=== PATIENT | female | born 1935 | race Caucasian/White ===

== ENCOUNTER 2019-03-03 12:03 | Inpatient (IN) ==
--- NOTE | 2019-03-03 12:39 | Diag Imaging Result Doc PS360 ---
EXAM: CHEST-1 VIEW HISTORY: ams TECHNIQUE: Chest single view COMPARISON: 03/25/2018 FINDINGS: Poor inspiratory effort. There is pulmonary edema. Heart is mildly prominent and there may be small effusions. No consolidation. Severe right shoulder arthritis. IMPRESSION: Pulmonary edema Electronically signed by Malcom Adam 03/03/2019 12:37 PM
--- NOTE | 2019-03-03 12:40 | EKG Report ---
Test Performed on : 03/03/2019 12:20:17 PM Test Reason : ams Blood Pressure : / mmHG Vent. Rate : 096 BPM Atrial Rate : 096 BPM P-R Int : 242 ms QRS Dur : 076 ms QT Int : 336 ms P-R-T Axes : 057 010 059 degrees QTc Int : 424 ms Sinus rhythm. with 1st degree AV block. with occasional premature ventricular complexes. Septal infarct (cited on or before 20-MAR-2018) Abnormal ECG When compared with ECG of 20-MAR-2018 08:10, premature ventricular complexes. are now present VT interval has increased Criteria for Inferior infarct are no longer present Unconfirmed Result
[2019-03-03 13:10] LABS: ALLEN TEST YES; BE 0.8 mmoll (-3.0-3.0); BLOOD TYPE ARTERIAL; HCO3-(ACT) 25.5 mmoll (20.0-26.0); METHB 1.5 % (0.0-1.5); MODALITY CANNULA; O2(CT) 14.8 mL/dL (15.0-23.0); O2HB 93.7 % (95.0-99.0); PCO2(98.6) 43 mmHg (35-45); PO2(98.6) 72 mmHg (60-100); SAMPLE BLOOD; SAO2 96.6 % (95.0-100.0); THB 11.2 g/dL (11.5-17.4); pH(98.6) 7.39 (7.35-7.45)
[2019-03-03 13:14] LABS: URINE SOURCE CATH
[2019-03-03 13:17] LABS: BASO# 0.04 X1000 (0.0-0.2); BASO% 0.4 % (0.0-0.8); EOS# 0.21 X1000 (0.0-0.7); EOS% 2.2 % (0.0-10.0); HEMATOCRIT 37.6 % (37.0-47.0); HEMOGLOBIN 11.9 g/dL (12.0-16.0); IMM GRAN# 0.03 X1000 (0.0-0.04); IMM GRAN% 0.3 % (0.0-0.5); LYMPH# 3.54 X1000 (1.2-3.4); MCH 29.1 PG (27-31); MCHC 31.6 g/dL (33-37); MCV 91.9 FL (81-99); MONO# 0.74 X1000 (0.11-0.59); MONO% 7.7 % (1.7-9.3); MPV 9.7 FL (7.4-10.4); NEUT# 5.02 X1000 (1.4-6.5); NEUT% 52.4 % (42.2-75.2); PLT 229 X1000 (130-400); RBC 4.09 XMIL (4.2-5.4); RDW 13.3 % (11.5-14.5); WBC 9.58 X1000 (4.8-10.8)
[2019-03-03 13:19] LABS: BILIRUBIN URINE NEGATIVE (NEGATIVE); BLOOD URINE NEGATIVE (NEGATIVE); COLOR YELLOW; GLUCOSE URINE NEGATIVE (NEGATIVE); KETONE URINE NEGATIVE (NEGATIVE); LEUKOCYTES URINE LARGE (NEGATIVE); NITRITE URINE POSITIVE (NEGATIVE); PH URINE 5.5; PROTEIN URINE NEGATIVE (NEGATIVE); SP GRAVITY URINE 1.014; TURBIDITY URINE HAZY (CLEAR); UROBILINOGEN URINE NORMAL (NORMAL)
[2019-03-03 13:21] LABS: UR EPITHELIAL CELLS <10 /HPF (<10); URINE BACTERIA 4+ /HPF; URINE RBC <10 /HPF (<10); URINE WBC TNTC /HPF (<10)
[2019-03-03 13:26] LABS: INR 0.84; PROTIME 12.2 Seconds (11.0-16.0)
[2019-03-03 13:27] LABS: PTT 25.6 Seconds (22.3-41.8)
[2019-03-03 13:44] LABS: ALBUMIN 3.9 g/dL (3.5-5.0); CALCIUM 9.6 mg/dL (8.8-10.2); POTASSIUM 4.7 mmol/L (3.5-5.1); TOTAL BILIRUBIN 0.19 mg/dL (0.20-1.00); TOTAL PROTEIN 7.8 g/dL (6.3-8.3)
--- NOTE | 2019-03-03 13:48 | Diag Imaging Result Doc PS360 ---
EXAM: CT HEAD W/O CONTRAST HISTORY: ER 3 AMS TECHNIQUE: CT head without contrast COMPARISON: 02/25/2015 FINDINGS: No parenchymal hemorrhage. No epidural or subdural hematoma. No subarachnoid hemorrhage. There are chronic microvascular ischemic changes. No mass identified on this noncontrasted exam. No hydrocephalus. Near complete bilateral maxillary opacification with prominent mucus in the ethmoid sinuses and opacification of the left frontal sinus. IMPRESSION: 1.No hemorrhage 2.Chronic microvascular ischemic changes 3.Prominent sinusitis This exam was performed using automated exposure control, adjustment of mA or kV according to patient size, and/or use of iterative reconstruction technique. Electronically signed by Malcom Adam 03/03/2019 1:46 PM
[2019-03-03] MEDS ORDERED: ROCEPHIN 1 GM in NS 50 ML IV ONE (15:22)
--- NOTE | 2019-03-03 15:25 | PROVIDER DOCUMENTATION ---
This chart was entered by Winnie Navarrete Scribe, acting as scribe for Ramón Irving MD. HPI-Neurological Disorder - General Stated Complaint: AMS Time Seen by Provider: 03/03/19 12:12 Source: patient, EMS Allergies/Adverse Reactions: Patient Allergies Allergy/AdvReac Type Severity Reaction Status Date / Time No Known Allergies Allergy Verified 10/25/15 08:52 Home Medications: Home Medication List Medication Instructions Recorded Confirmed Last Taken Type SIMVAstatin [Zocor] 20 mg PO QHS 08/12/12 03/19/18 10/25/15 21:00 History Ropinirole HCl [Requip] 2 mg PO BID 09/30/14 03/19/18 10/25/15 21:00 History Furosemide [Lasix] 20 mg PO DAILY 02/25/15 03/19/18 10/25/15 09:00 History Ferrous Sulfate [Ferosul] 325 mg PO DAILY 10/25/15 03/19/18 10/25/15 09:00 Hi story Metformin [Glucophage] 500 mg PO BID 10/25/15 03/19/18 10/25/15 17:00 History Albuterol [Albuterol Neb] 2.5 mg INH 4XDAY PRN PRN 03/19/18 03/19/18 Unknown History Calcium Carbonate/Vitamin D3 1 each PO DAILY 03/19/18 03/19/18 Unknown History [Calcium 600 + Vit D Tablet] Fluticasone/Salmeterol [Advair 1 puff IH BID 03/19/18 03/19/18 Unknown History 250-50 Diskus] Ipratropium [place] Neb [Atrovent 0.5 mg INH 4XDAY PRN PRN 03/19/18 03/19/18 Unknown History Neb] Ipratropium/Albuterol Sulfate 2 puff IH BID 03/19/18 03/19/18 Unknown History [Combivent Respimat 20-100 Mcg] Donepezil [Aricept] 10 mg PO HS #30 tab 03/25/18 Unknown Rx Duloxetine [Cymbalta] 20 mg PO DAILY #30 cap 03/25/18 Unknown Rx Gabapentin [Neurontin] 100 mg PO RTQ8H #90 cap 03/25/18 Unknown Rx Lorazepam [Ativan] 0.5 mg PO DAILY #15 tab 03/25/18 Unknown Rx Lorazepam [Ativan] 1 mg PO HS #15 tab 03/25/18 Unknown Rx Magnesium Oxide [Mag-Ox] 400 mg PO BID #60 tab 03/25/18 Unknown Rx Mirtazapine [Remeron] 15 mg PO HS #30 tab 03/25/18 Unknown Rx Nitrofurantoin [place]/Macrocryst 100 mg PO BID #5 cap 03/25/18 Unknown Rx [Macrobid] Oxycodone E.r. [Oxycontin] 10 mg PO Q12HR #30 tab 03/25/18 Unknown Rx Pregabalin [Lyrica] 25 mg PO HS #15 cap 03/25/18 Unknown Rx - History of Present Illness-Neuro Nature of Presenting Problem: Patient is a 83 year old female who presents to the ED via EMS with altered mental status. EMS states [facility] staff stated patient has been drowsy since 1000 this morning. Patient denies pain. EMS states patient has a history of dementia and takes [place] and Ativan. Severity: reports: mild Onset/Duration: reports: this morning (1000) Timing: reports: improving Context: reports: other (AMS) Character of Altered Mental Status: reports: other (drowsy) Any recent trauma/injury?: reports: none Gait Baseline: walks without assistance Associated Symptoms: reports: denies symptoms Similar Symptoms Previously?: No Recently seen or treated by another doctor?: No Review of Systems - Adult - REVIEW OF SYSTEMS - ADULT Constitutional: reports: no symptoms reported. denies: chills, fever, fatique Eyes: reports: no symptoms reported Ears, Nose, Mouth & Throat: reports: no symptoms reported Cardiovascular: reports: no symptoms reported. denies: chest pain, irregular heart rate, palpitations Respiratory: reports: no symptoms reported Gastrointestinal: reports: no symptoms reported Genitourinary: reports: no symptoms reported Musculoskeletal: reports: no symptoms reported. denies: back pain, muscle aches, neck pain Integumentary: reports: no symptoms reported Neurological: reports: no symptoms reported Psychiatric: reports: no symptoms reported Endocrine: reports: no symptoms reported Hematologic/Lymphatic: reports: no symptoms reported Allergic/Immunologic: reports: no symptoms reported All Other Systems: Reviewed and Negative Past History - Adult - PAST MEDICAL HISTORY-ADULT Review of Records: reports: Old Records Reviewed, Nursing Assessment Review, Medications Reviewed, Social history reviewed & non-contributory. Major Childhood Illnesses: reports: denies history Cardiovascular: reports: hyperlipidemia Respiratory: reports: COPD Gastrointestinal: reports: GERD Obstetrical/Gynecological: reports: denies history Genitourinary: reports: denies history Musculoskeletal: reports: chronic pain (back) Neurological: reports: dementia Psychiatric: reports: anxiety, depression Endocrine/Immune: reports: Diabetes Other Conditions: reports: denies history - PRIOR SURGERIES/PROCEDURES Surgical/Procedure History: reports: hysterectomy - IMMUNIZATION STATUS Childhood Immunizations: See Nurse Assessment Flu Vaccine: See Nurse Assessment - FAMILY HISTORY Family History: reviewed, not pertinent - SOCIAL HISTORY Smoking: denies Substance Use: denies Living Situation: care facility (SNF) Physical Exam- Neurological - Physical Exam-Neuro Initial Vital Signs Reviewed: Yes General Appearance: alert, no apparent distress. negative: lethargic Eye Exam: bilateral eye: normal inspection, PERRL, EOMI HENMT: normocephalic/atraumatic, moist mucous membranes. negative: angioedema Head Injury: no evidence of injury. negative: active bleeding, lacerations, tenderness Respiratory: chest non-tender, rhonchi (bilateral. right worse than left.). negative: respiratory distress, crackles Cardiovascular: normal peripheral pulses, regular rate, rhythm. negative: tachycardia Abdominal Exam: normal bowel sounds, non tender, soft. negative: rigid Extremity: non-tender, normal inspection. negative: deformity, erythema marble supervisor Exam: normal hearing, normal speech, PERRL. negative: facial droop Motor/Sensory: no motor deficit, no sensory deficit. negative: sensory deficit Neurologic: grossly normal, no motor/sensory deficits. negative: aphasia, facial droop Integumentary: normal color, normal turgor, warm/dry. negative: cyanosis, ecchymosis, jaundice, rash Psych/Mental Status: normal mood/affect. negative: anxious, paranoid - Glascow Coma Scale Best Eye Response: (4) open spontaneously Best Verbal Response: (5) oriented Best Motor Response: (6) obeys commands Total Glascow Score: 15 Progress - PLAN OF CARE/RESULTS Progress/Plan/Lab Results: Vital Signs - 8 hr 03/03/19 12:18 03/03/19 12:19 03/03/19 12:20 Temperature 97.7 F Pulse Rate 98 H Respiratory Rate 18 Blood Pressure 159/81 159/81 O2 Sat by Pulse Oximetry 99 98 99 03/03/19 12:30 03/03/19 12:40 Temperature Pulse Rate Respiratory Rate Blood Pressure O2 Sat by Pulse Oximetry 99 99 Laboratory Results - last 24 hr 03/03/19 03/03/19 03/03/19 12:23 12:49 12:49 WBC 9.58 RBC 4.09 L Hgb 11.9 L Hct 37.6 MCV 91.9 MCH 29.1 MCHC 31.6 L RDW Std Deviation 13.3 Plt Count 229 MPV 9.7 Immature Gran % (Auto) 0.3 Neut % (Auto) 52.4 Lymph % (Auto) 37.0 [place] % (Auto) 7.7 Eos % (Auto) 2.2 Baso % (Auto) 0.4 Immature Gran # (Auto) 0.03 Neut # (Auto) 5.02 Lymph # (Auto) 3.54 H [place] # (Auto) 0.74 H Eos # (Auto) 0.21 Baso # (Auto) 0.04 PT INR PTT (Actin FS) Specimen Type Sample Site pH pCO2 pO2 HCO3 Base Excess Oxyhemoglobin ABG O2 Sat (Calculated) ABG O2 Saturation ABG Carboxyhemoglobin ABG Methemoglobin Bill Test A-a O2 Difference Total Hemoglobin Lactate Blood Gas Modality FiO2 % Sodium 132 L Potassium 4.7 Chloride 95 L Carbon Dioxide 26 Anion Gap 11 BUN 14 Creatinine 1.0 H Estimated GFR/1.73 m2 53 BUN/Creatinine Ratio 14 Glucose 105 H POC Glucose 108 H Calculated Osmolality 265 Calcium 9.6 Total Bilirubin 0.19 L AST 19 ALT 12 Alkaline Phosphatase 146 H Total Protein 7.8 Albumin 3.9 Globulin 3.9 Albumin/Globulin Ratio 1.0 Urine Source Urine Color Urine Turbidity Urine pH Ur Specific [place] Urine Protein Ur Glucose (Stick) Ur Ketones (Stick) Urine Blood Urine Nitrite Urine Bilirubin Urobilinogen Dipstick Urine Leukocytes Urine WBC (Auto) Urine RBC (Auto) U Epithel Cells (Auto) Urine Bacteria (Auto) 03/03/19 03/03/19 03/03/19 12:49 13:03 13:05 WBC RBC Hgb Hct MCV MCH MCHC RDW Std Deviation Plt Count MPV Immature Gran % (Auto) Neut % (Auto) Lymph % (Auto) [place] % (Auto) Eos % (Auto) Baso % (Auto) Immature Gran # (Auto) Neut # (Auto) Lymph # (Auto) [place] # (Auto) Eos # (Auto) Baso # (Auto) PT 12.2 INR 0.84 PTT (Actin FS) 25.6 Specimen Type ARTERIAL Sample Site L RADIAL pH 7.39 pCO2 43 pO2 72 HCO3 25.5 Base Excess 0.8 Oxyhemoglobin 93.7 L ABG O2 Sat (Calculated) 14.8 L ABG O2 Saturation 96.6 ABG Carboxyhemoglobin 1.50 ABG Methemoglobin 1.5 Bill Test YES A-a O2 Difference 102.0 Total Hemoglobin 11.2 L Lactate 1.60 Blood Gas Modality CANNULA FiO2 % 32.0 Sodium Potassium Chloride Carbon Dioxide Anion Gap BUN Creatinine Estimated GFR/1.73 m2 BUN/Creatinine Ratio Glucose POC Glucose Calculated Osmolality Calcium Total Bilirubin AST ALT Alkaline Phosphatase Total Protein Albumin Globulin Albumin/Globulin Ratio Urine Source CATH Urine Color YELLOW Urine Turbidity HAZY Urine pH 5.5 Ur Specific [place] 1.014 Urine Protein NEGATIVE Ur Glucose (Stick) NEGATIVE Ur Ketones (Stick) NEGATIVE Urine Blood NEGATIVE Urine Nitrite POSITIVE A Urine Bilirubin NEGATIVE Urobilinogen Dipstick NORMAL Urine Leukocytes LARGE A Urine WBC (Auto) TNTC A Urine RBC (Auto) <10 U Epithel Cells (Auto) <10 Urine Bacteria (Auto) 4+ Orders Category Date Time Status CHEST-1 VIEW [RAD] Stat Exams 03/03/19 12:[address] HEAD W/O CONTRAST [CT] Stat Exams 03/03/19 12:20 Completed ABG [RESP] Routine Lab 03/03/19 13:05 Completed CBC WITH DIFF [HEME] Stat Lab 03/03/19 12:49 Completed COMPREHENSIVE METABOLIC PANEL [CHEM] Stat Lab 03/03/19 12:49 Completed PROTIME WITH INR [COAG] Stat Lab 03/03/19 12:49 Completed PTT [COAG] Stat Lab 03/03/19 12:49 Completed URINALYSIS W/POSS RFLX CULT [URINALYSIS] Stat Lab 03/03/19 13:03 Completed URINE CULTURE [RM] Routine Lab 03/03/19 13:38 Received Rocephin 1 gm/Ns IV Now Med 03/03/19 15:22 Ordered CefTRIAXONE [Rocephin] 1 gm 0.9% Sodium Chloride Inj [Ns] 50 ml IV NOW EKG [EKG] Stat Ther 03/03/19 12:22 Draft Result Diagrams: 03/03/19 12:49 03/03/19 12:49 - EKG 1 Time of EKG reading by physician:: 12:20 EKG Read and Signed by:: Ramón Irving EKG Interpretation (*Must complete 3 of following elements*): Abnormal (rhythm - sinus rhythm with 1st degree AV block with occasional premature ventricular complexes) Rate: 96 [place]: normal Comments: septal infarct, age undetermined 2 Time of EKG reading by physician:: 14:52 EKG Read and Signed by:: Ramón Irving EKG Interpretation (*Must complete 3 of following elements*): Abnormal Rate: 102 Rhythm: sinus tachycardia with 1st degree AV block [place]: normal Comments: otherwise normal ECG - XRAY 1 XRAY Study: Chest Impression: See EMR Report ( EXAM: CHEST-1 VIEW HISTORY: ams TECHNIQUE: Chest single view COMPARISON: 03/25/2018 FINDINGS: Poor inspiratory effort. There is pulmonary edema. Heart is mildly prominent and there may be small effusions. No consolidation. Severe right shoulder arthritis. IMPRESSION: Pulmonary edema Electronically signed by Malcom Adam 03/03/2019 12:37 PM 03/03/19 1237 Interpreting Physician: Malcom Adam MD Dictated Date/Time: 03/03/19 1237 cc: Ramón Irving MD; Chris Rodriguez MD) - CT/MRI 1 CT Study: Head Impression: See EMR Report ( EXAM: CT HEAD W/O CONTRAST HISTORY: ER 3 AMS TECHNIQUE: CT head without contrast COMPARISON: 02/25/2015 FINDINGS: No parenchymal hemorrhage. No epidural or subdural hematoma. No subarachnoid hemorrhage. There are chronic microvascular ischemic changes. No mass identified on this noncontrasted exam. No hydrocephalus. Near complete bilateral maxillary opacification with prominent mucus in the ethmoid sinuses and opacification of the left frontal sinus. IMPRESSION: 1.No hemorrhage 2.Chronic microvascular ischemic changes 3.Prominent sinusitis This exam was performed using automated exposure control, adjustment of mA or kV according to patient size, and/or use of iterative reconstruction technique. Electronically signed by Malcom Adam 03/03/2019 1:46 PM 03/03/19 1346 Interpreting Physician: Malcom Adam MD Dictated Date/Time: 03/03/19 1345 cc: Ramón Irving MD; Chris Rodriguez MD) - CONSULTS/PCP/HOSPITALIST Notification #1 *Consult/PCP/Hospitalist*: Dr. Rodriguez Time Discussed: 15:21 Reason/Comments: Dr. Irving consulted with Dr. Rodriguez about patient Consult Disposition: Admit Departure - Departure Date of Disposition Decision: 03/03/19 Time of Disposition Decision: 15:22 DIAGNOSIS: UTI (lower urinary tract infection), Altered mental status Disposition: ADMITTED INPATIENT 09 Certified Medical Emergency: Emergent Condition: Fair Referrals and Follow-Ups: Chris Rodriguez MD [Primary Care Provider] - - Critical Care Note This patient required my direct & personal management of CC.: No Attestation - Physician/ ANG Attestation Patient care was provided by Advanced Practice Provider:: No The physician spent face to face time with patient:: Yes Advanced Practice Provider documentation review:: Supervising physician onsite and consulted in the evaluation and care of this patient. The physician did have a face to face encounter with the patient. This chart was documented by the indicated scribe, (Winnie Navarrete Scribe) and accurately reflects the services I performed and decisions made by me, Ramón Irving MD, as attested by the provider's signature.
[2019-03-03] MEDS: LYRICA PO SCH (21:42)
[2019-03-03] MEDS: LEVAQUIN 750 MG/D5W 750 MG/150 ML IVPB IV SCH (21:42)
[2019-03-03] MEDS: MAG-OX PO SCH (21:42)
[2019-03-03] MEDS: ATIVAN PO SCH (21:42)
[2019-03-03] MEDS: OXYCONTIN PO SCH (21:42)
[2019-03-03] MEDS: ARICEPT PO SCH (21:42)
[2019-03-03] MEDS: REMERON PO SCH (21:42)
[2019-03-03] MEDS: GLUCOPHAGE PO SCH (21:42)
[2019-03-03] MEDS: NEURONTIN PO SCH (23:12)
[2019-03-03] MEDS: REQUIP PO SCH (23:12)
--- NOTE | 2019-03-04 03:59 | HISTORY AND PHYSICAL ---
HISTORY OF PRESENT ILLNESS: Ms. Friend is a known case of COPD and early dementia, a resident of [facility]. This morning she was found almost unresponsive. She was slightly hypotensive and sweaty, and at that time she did not know her whereabouts, did not answer the nursing staff properly. The nurses were worried about her health and so she was transferred to the emergency room, from where she is admitted on account of acute mental status change and urinary tract infection. 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 She has been on pain medications on a regular basis. PAST SURGICAL HISTORY: Hysterectomy. MEDICATIONS: She does take albuterol and Atrovent inhaler. She uses pain medication as well as Ativan on a regular basis. REVIEW OF SYSTEMS: Noncontributory. PHYSICAL EXAMINATION: VITAL SIGNS: Temperature normal, pulse 80 per minute, respiratory rate 18 per minute, blood pressure 110/78. GENERAL: There is no evidence of lymphadenopathy, thyroid enlargement, pedal edema, calf tenderness, anemia, cyanosis or clubbing. HEENT: Head normocephalic. Pupils: PERRLA. Fundus examination not done. ENT examination unremarkable. NECK: Supple. JVP normal. EXTREMITIES: Pedal pulses well felt. BREASTS: Exam normal. CHEST: Normal inspection. LUNGS: Clear on auscultation. HEART: PMI in the normal position. Heart sounds normal. No murmur, gallop or rub noted. ABDOMEN: Nondistended. There is some tenderness in the suprapubic area. No guarding, rigidity, free fluid, masses or organomegaly. Bowel sounds normal. RECTAL: Exam deferred. 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 Cranial nerves normal. Motor and sensory system examination unremarkable. The patient appears to be somewhat confused right now; however, mental status has improved significantly. Deep tendon reflexes normal. Plantars downgoing. No cerebellar signs or signs of meningeal irritation on locomotor exam. MUSCULOSKELETAL: Skull and spine examination normal for age. SKIN: Exam unremarkable. CLINICAL IMPRESSION: 1. Acute mental status change. 2. Urinary tract infection. PLAN: The cultures have been done, and we will start her on IV Levaquin. We will watch her closely. cc: Chris Rodriguez MD
--- NOTE | 2019-03-04 08:23 | EKG Report ---
Test Performed on : 03/03/2019 2:52:21 PM Test Reason : ED. NO EKG ORDER FOR MUSE Blood Pressure : / mmHG Vent. Rate : 102 BPM Atrial Rate : 102 BPM P-R Int : 248 ms QRS Dur : 070 ms QT Int : 318 ms P-R-T Axes : 050 012 062 degrees QTc Int : 414 ms Sinus tachycardia. with 1st degree AV block. Otherwise normal ECG When compared with ECG of 03-MAR-2019 12:20, (Unconfirmed) premature ventricular complexes. are no longer present Unconfirmed Result
--- NOTE | 2019-03-04 08:24 | EKG Report ---
Test Performed on : 03/03/2019 4:11:28 PM Test Reason : ED. NO EKG ORDER FOR MUSE Blood Pressure : / mmHG Vent. Rate : 078 BPM Atrial Rate : 078 BPM P-R Int : 148 ms QRS Dur : 072 ms QT Int : 388 ms P-R-T Axes : 007 -28 -04 degrees QTc Int : 442 ms Normal sinus rhythm. Minimal voltage criteria for LVH, may be normal variant Borderline ECG When compared with ECG of 03-MAR-2019 14:52, (Unconfirmed) ID interval has decreased ST now depressed in Inferior leads Non-specific change in ST segment in Lateral leads Unconfirmed Result
[2019-03-04] MEDS: LASIX PO SCH (09:06)
[2019-03-04] MEDS: CALTRATE 600 + D PO SCH (09:06)
[2019-03-04] MEDS: MAG-OX PO SCH ×2 (09:07→21:21)
[2019-03-04] MEDS: OXYCONTIN PO SCH ×2 (09:07→21:21)
[2019-03-04] MEDS: FERROUS SULFATE PO SCH (09:07)
[2019-03-04] MEDS: ATIVAN PO SCH ×2 (09:07→21:21)
[2019-03-04] MEDS: CYMBALTA PO SCH (09:07)
[2019-03-04] MEDS: GLUCOPHAGE PO SCH ×2 (09:07→21:22)
[2019-03-04] MEDS: REQUIP PO SCH ×2 (09:07→21:21)
[2019-03-04] MEDS: NEURONTIN PO SCH ×3 (09:07→23:53)
--- NOTE | 2019-03-04 11:59 | PROGRESS NOTE ---
DATE: 03/04/2019 SUBJECTIVE: Ms. Friend is doing fairly well. She was hospitalized for mental status change. CT scan is negative. She had some urinary tract infection. We have started IV Levaquin on her, which she has tolerated quite well. Her vital signs are stable, except for low-grade fever, which is 99.1. Overall condition is unchanged. We will continue with the current management. -1 cc: Chris Rodriguez MD
[2019-03-04] MEDS: ALBUTEROL NEB INH PRN (20:32)
[2019-03-04] MEDS: ATROVENT NEB INH PRN (20:32)
[2019-03-04] MEDS: ARICEPT PO SCH (21:21)
[2019-03-04] MEDS: REMERON PO SCH (21:22)
[2019-03-04] MEDS: LYRICA PO SCH (21:24)
[2019-03-04] MEDS: LEVAQUIN 750 MG/D5W 750 MG/150 ML IVPB IV SCH (21:26)
[2019-03-05] MEDS: ATROVENT NEB INH PRN (03:40)
[2019-03-05] MEDS: ALBUTEROL NEB INH PRN ×2 (03:40→08:33)
[2019-03-05] MEDS: NEURONTIN PO SCH ×2 (06:09→15:57)
[2019-03-05] MEDS: OXYCONTIN PO SCH (09:17)
[2019-03-05] MEDS: MAG-OX PO SCH (09:18)
[2019-03-05] MEDS: FERROUS SULFATE PO SCH (09:18)
[2019-03-05] MEDS: CALTRATE 600 + D PO SCH (09:18)
[2019-03-05] MEDS: CYMBALTA PO SCH (09:18)
[2019-03-05] MEDS: ATIVAN PO SCH (09:18)
[2019-03-05] MEDS: REQUIP PO SCH (09:18)
[2019-03-05] MEDS: LASIX PO SCH (09:18)
[2019-03-05] MEDS: GLUCOPHAGE PO SCH (09:18)
--- NOTE | 2019-03-05 12:09 | DISCHARGE SUMMARY ---
ADMISSION DATE: 03/03/2019 DISCHARGE DATE: 03/04/2019 HISTORY OF PRESENT ILLNESS: Ms. Friend is an 83-year-old white female who lives in [facility]. She was admitted with acute mental status change. She also had a urinary tract infection. DIAGNOSTIC DATA: Chest x-ray revealed pulmonary edema. CT scan of the brain was performed, and it did not show any evidence of hemorrhage. There were other chronic microvascular ischemic changes noted. Sinusitis was also noted. EKG had revealed sinus tachycardia, first-degree AV block, otherwise normal EKG. COURSE IN THE HOSPITAL: She was given IV Rocephin in the ER. We changed it to Levaquin, however, it was resistant to Levaquin, and we changed back to Keflex. We will discharge her today with Keflex 500 mg 3 times a day for 7 days. She is going to continue all her same medications and going to be discharged to [facility] today. FINAL DIAGNOSES: 1. Acute encephalopathy secondary to urinary tract infection. 2. Mild pulmonary edema. 3. Dementia. 4. Diabetes. 5. Chronic obstructive pulmonary disease. 6. Degenerative arthritis in the lumbar spine and both knees. cc: Chris Rodriguez MD
--- NOTE | 2019-03-05 12:11 | PROGRESS NOTE ---
DATE: 03/05/2019 SUBJECTIVE: Ms. Friend is doing better. She had Escherichia coli isolated from the urine culture. She is on IV Levaquin. She is feeling better. Vital signs are stable. She wants to be discharged today. We will discharge her. It is resistant to Levaquin, however, it is sensitive to cefazolin. We will put her on Keflex for 7 days and discharge her. cc: Chris Rodriguez MD
[2019-03-05 12:24] VITALS: BP 119/71
[2019-03-05] MEDS ORDERED: KEFLEX PO SCH (21:00)
--- NOTE | 2019-03-11 04:25 | DISCHARGE SUMMARY ---
ADMISSION DATE: 03/03/2019 DISCHARGE DATE: 03/05/2019 ADDENDUM: Ms Friend was admitted with mental confusion. She also had severe urinary tract infection, which was treated accordingly with antibiotics. She had metabolic encephalopathy due to urinary tract infection. cc: Chris Rodriguez MD
== END 2019-03-05 16:29 | DRG 689 ==
LOC: SUPCPDRO → ED 12:03 → 3N 18:02
PROVIDERS: ADMIT Internal Medicine; ATTEND Internal Medicine
CPT/HCPCS: 70450; 71010; 71045; 80053; 81001; 82805; 82948; 85025; 85610; 85730; 87040; 87077; 87088; 87186; 93005; 94640; 94761; 99285; A9270; J0696; J1956; XXXXX

== ENCOUNTER 2019-09-30 00:25 | Inpatient (IN) ==
--- NOTE | 2019-09-30 00:41 | PROVIDER DOCUMENTATION ---
HPI-General Adult - General Stated Complaint: sob, cough Time Seen by Provider: 09/30/19 00:29 Source: patient, EMS Allergies/Adverse Reactions: Patient Allergies Allergy/AdvReac Type Severity Reaction Status Date / Time No Known Allergies Allergy Verified 10/25/15 08:52 Home Medications: Home Medication List Medication Instructions Recorded Confirmed Last Taken Type SIMVAstatin [Zocor] 20 mg PO QHS 08/12/12 03/19/18 10/25/15 21:00 History Ropinirole HCl [Requip] 2 mg PO BID 09/30/14 03/19/18 10/25/15 21:00 History Furosemide [Lasix] 20 mg PO DAILY 02/25/15 03/19/18 10/25/15 09:00 History Ferrous Sulfate [Ferosul] 325 mg PO DAILY 10/25/15 03/19/18 10/25/15 09:00 History Metformin [Glucophage] 500 mg PO BID 10/25/15 03/19/18 10/25/15 17:00 History Albuterol [Albuterol Neb] 2.5 mg INH 4XDAY PRN PRN 03/19/18 03/19/18 Unknown History Calcium Carbonate/Vitamin D3 1 each PO DAILY 03/19/18 03/19/18 Unknown History [Calcium 600 + Vit D Tablet] Fluticasone/Salmeterol [Advair 1 puff IH BID 03/19/18 03/19/18 Unknown History 250-50 Diskus] Ipratropium [place] Neb [Atrovent 0.5 mg INH 4XDAY PRN PRN 03/19/18 03/19/18 Unknown History Neb] Ipratropium/Albuterol Sulfate 2 puff IH BID 03/19/18 03/19/18 Unknown History [Combivent Respimat 20-100 Mcg] Donepezil [Aricept] 10 mg PO HS #30 tab 03/25/18 Unknown Rx Duloxetine [Cymbalta] 20 mg PO DAILY #30 cap 03/25/18 Unknown Rx Lorazepam [Ativan] 0.5 mg PO DAILY #15 tab 03/25/18 Unknown Rx Lorazepam [Ativan] 1 mg PO HS #15 tab 03/25/18 Unknown Rx Magnesium Oxide [Mag-Ox] 400 mg PO BID #60 tab 03/25/18 Unknown Rx Mirtazapine [Remeron] 15 mg PO HS #30 tab 03/25/18 Unknown Rx Oxycodone E.r. [Oxycontin] 10 mg PO Q12HR #30 tab 03/25/18 Unknown Rx Pregabalin [Lyrica] 25 mg PO HS #15 cap 03/25/18 Unknown Rx CephALEXIN [Keflex] 500 mg PO Q12HR cap 03/05/19 Unknown Rx Gabapentin [Neurontin] 100 mg PO RTQ8H cap 03/05/19 Unknown Rx - History of Present Illness -Gen Adult Nature of Presenting Problems: Pt. is 83 yof that presents with c/o SOB for three days. She states she waited as long as she could. EMS says the [facility] reports symptoms for one week. They report a negative CXR at the [facility]. Pt. is on 2 L O2 all the time. She has been coughing with chest congestion but denies any fever. Pt. has no other complaint s. Location of Pain/Injury: reports: none. denies: head, face, mouth, neck, chest, upper extremity, hand(s), abdomen, back, pelvis, genitalia, lower extremity, feet, upper body, lower body, generalized, other Pain Radiation: reports: no radiation. denies: arm(s), back, buttocks, chest, epigastric, feet, groin, jaw, flank (L), legs (lower), LLQ, LUQ, neck, periumbilical, flank (R), RLQ, RUQ, shoulder(s), scapula, scrotal, sternal notch, suprapubic, legs (upper), urethral, vaginal, other Quality of Pain: reports: none. denies: burning, pressure, sharp, tightness Severity: reports: moderate. denies: mild, severe Onset/Duration: reports: gradual, 1 week ago Timing: reports: still present, gone now. denies: improving, intermittent, getting worse Context/Activities at Onset: denies: none, light activity, moderate activity, vigorous activity, recent emotional stress, recent physical stress, recent trauma history, possible bad food, cold exposure, eating, out of country travel, rest, sleep, sexual activity, other Modifying Factors: improves with: nothing Associated Symptoms: reports: cough, shortness of breath. denies: denies symptoms, anxiety, arm pain, back/neck pain, chest pain, constipation, diaphoresis, diarrhea, dizziness, EENT symptoms, fatigue, fever/chills, genitourinary problems, headaches, heartburn, joint pain, loss of appetite, malaise, muscle aches, sinus congestion/drainage, nausea, rash, seizure, sensory/motor loss, pain with inspiration, swelling/mass in abdomen, syncope, vomiting, weakness, trouble walking, other Similar Symptoms Previously?: Yes Recently seen or treated by another doctor?: No Review of Systems - Adult - REVIEW OF SYSTEMS - ADULT Constitutional: reports: no symptoms reported Eyes: reports: no symptoms reported Ears, Nose, Mouth & Throat: reports: no symptoms reported Cardiovascular: reports: no symptoms reported Respiratory: reports: see HPI, cough, shortness of breath. denies: hemoptysis, pleurisy, wheezing Gastrointestinal: reports: no symptoms reported Genitourinary: reports: no symptoms reported Musculoskeletal: reports: no symptoms reported Integumentary: reports: no symptoms reported Neurological: reports: no symptoms reported Psychiatric: reports: no symptoms reported Past History - Adult - PAST MEDICAL HISTORY-ADULT Review of Records: reports: Old Records Reviewed, Nursing Assessment Review, Medications Reviewed, Social history reviewed & non-contributory. Major Childhood Illnesses: reports: denies history Cardiovascular: reports: hyperlipidemia Respiratory: reports: COPD Gastrointestinal: reports: GERD Obstetrical/Gynecological: reports: denies history Genitourinary: reports: denies history Musculoskeletal: reports: chronic pain (back) Neurological: reports: dementia Psychiatric: reports: anxiety, depression Endocrine/Immune: reports: Diabetes Other Conditions: reports: denies history - PRIOR SURGERIES/PROCEDURES Surgical/Procedure History: reports: hysterectomy - IMMUNIZATION STATUS Childhood Immunizations: See Nurse Assessment Flu Vaccine: See Nurse Assessment - FAMILY HISTORY Family History: reviewed, not pertinent - SOCIAL HISTORY Smoking: denies Physical Exam-General - PHYSICAL EXAM-ADULT Initial Vital Signs Reviewed: Yes - CONSTITUTIONAL General Appearance: alert, moderate distress. negative: anxious, obtunded, combative - EYES Eyes: PERRL/EOMI, pink conjunctivae - HEAD, EARS, NOSE, MOUTH & THROAT HENMT: normocephalic/atraumatic, moist mucous membranes - NECK Neck: non-tender, full range of motion, supple, normal inspection - RESPIRATORY Respiratory: rhonchi (bilaterally), increased rate. negative: wheezing, pleural rub, retractions - CARDIOVASCULAR Cardiovascular: normal peripheral pulses, regular rate, rhythm, no edema - GASTROINTESTINAL (ABDOMEN) Abdominal Exam: normal bowel sounds, non tender, soft - LYMPHATIC Lymphatic: no adenopathy - MUSCULOSKELETAL Back Exam: normal inspection, no CVA tenderness, no vertebral tenderness Extremity: normal range of motion, non-tender, normal inspection Peripheral Pulses: radial (R): 2+, radial (L): 2+ - SKIN Integumentary: normal color, normal turgor, warm/dry - NEUROLOGIC Neurologic: grossly normal, no motor/sensory deficits - PSYCHIATRIC Psych/Mental Status: normal mood/affect, normal thought content, normal thought process, oriented x 3. negative: anxious, paranoid, tearful Progress - PLAN OF CARE/RESULTS Progress/Plan/Lab Results: Orders Category Date Time Status Saline Loc NOW Care 09/30/19 00:35 Ordered CHEST-PORTABLE [RAD] Stat Exams 09/30/19 00:36 Ordered CBC WITH ELECTRONIC DIFF [HEME] Stat Lab 09/30/19 00:35 Uncollected CK PROFILE [SP CHEM] Stat Lab 09/30/19 00:35 Uncollected COMPREHENSIVE METABOLIC PANEL [CHEM] Stat Lab 09/30/19 00:35 Uncollected PRO B-NATRIURETIC PEPTIDE Stat Lab 09/30/19 00:35 Uncollected PROTIME WITH INR [COAG] Stat Lab 09/30/19 00:36 Uncollected PTT [COAG] Stat Lab 09/30/19 00:36 Uncollected TROPONIN T HIGH SENSITIVITY Stat Lab 09/30/19 00:36 Uncollected URINALYSIS W/POSS RFLX CULT [URINALYSIS] Stat Lab 09/30/19 00:36 Uncollected EKG [EKG] Stat Ther 09/30/19 00:35 Ordered Laboratory Tests 09/30/19 09/30/19 09/30/19 00:47 00:47 00:47 WBC 10.64 RBC 3.62 L Hgb 11.0 L Hct 35.8 L MCV 98.9 MCH 30.4 MCHC 30.7 L RDW Std Deviation 16.1 H Plt Count 222 MPV 9.6 Immature Gran % (Auto) 0.3 Neut % (Auto) 67.2 Lymph % (Auto) 22.1 [place] % (Auto) 10.1 H Eos % (Auto) 0.1 Baso % (Auto) 0.2 Immature Gran # (Auto) 0.03 Neut # (Auto) 7.16 H Lymph # (Auto) 2.35 [place] # (Auto) 1.07 H Eos # (Auto) 0.01 Baso # (Auto) 0.02 PT 13.5 INR 1.02 PTT (Actin FS) 41.0 Specimen Type Sample Site pH pCO2 pO2 HCO3 Base Excess Oxyhemoglobin ABG O2 Sat (Calculated) ABG O2 Saturation ABG Carboxyhemoglobin ABG Methemoglobin Bill Test A-a O2 Difference Total Hemoglobin Lactate Liter Flow Blood Gas Modality FiO2 % Sodium 129 L Potassium 4.1 Chloride 89 L Carbon Dioxide 26 Anion Gap 14 BUN 34 H Creatinine 2.7 H Estimated GFR/1.73 m2 17 BUN/Creatinine Ratio 13 Glucose 104 Calculated Osmolality 267 Calcium 8.4 L Total Bilirubin 0.15 L AST 38 H ALT 10 Alkaline Phosphatase 122 H Creatine Kinase 538 H Troponin T High Sens Total Protein 7.1 Albumin 3.2 L Globulin 3.9 Albumin/Globulin Ratio 0.8 Plasma Lactate 09/30/19 09/30/19 09/30/19 00:47 00:47 01:08 WBC RBC Hgb Hct MCV MCH MCHC RDW Std Deviation Plt Count MPV Immature Gran % (Auto) Neut % (Auto) Lymph % (Auto) Nicol[place] % (Auto) Eos % (Auto) Baso % (Auto) Immature Gran # (Auto) Neut # (Auto) Lymph # (Auto) [place] # (Auto) Eos # (Auto) Baso # (Auto) PT INR PTT (Actin FS) Specimen Type ARTERIAL Sample Site L RADIAL pH 7.32 L pCO2 51 H* pO2 70 HCO3 24.7 Base Excess -0.3 Oxyhemoglobin 94.6 L ABG O2 Sat (Calculated) 13.9 L ABG O2 Saturation 98.6 ABG Carboxyhemoglobin 2.80 H ABG Methemoglobin 1.2 Bill Test YES A-a O2 Difference 94.0 Total Hemoglobin 10.4 L Lactate 1.20 Liter Flow 3.0 Blood Gas Modality CANNULA FiO2 % 32.0 Sodium Potassium Chloride Carbon Dioxide Anion Gap BUN Creatinine Estimated GFR/1.73 m2 BUN/Creatinine Ratio Glucose Calculated Osmolality Calcium Total Bilirubin AST ALT Alkaline Phosphatase Creatine Kinase Troponin T High Sens 60 H Total Protein Albumin Globulin Albumin/Globulin Ratio Plasma Lactate 1.6 Result Diagrams: 09/30/19 00:47 09/30/19 00:47 - XRAY 1 XRAY Study: Chest XRAY Interpretation: Cardiomegaly (Bill) - CONSULTS/PCP/HOSPITALIST Notification #1 *Consult/PCP/Hospitalist*: Dr. Garza Time Discussed: 01:45 Reason/Comments: Admission Consult Disposition: Will see in ED, Admit Departure - Departure Date of Disposition Decision: 09/30/19 Time of Disposition Decision: 01:24 DIAGNOSIS: Hypoxia, Hyponatremia, COPD with exacerbation Acute renal failure Qualifiers: Acute renal failure type: unspecified Qualified Code(s): N17.9 - Acute kidney failure, unspecified CHF (congestive heart failure) Qualifiers: Heart failure type: unspecified Heart failure chronicity: unspecified Qualified Code(s): I50.9 - Heart failure, unspecified Disposition: ADMITTED INPATIENT 09 Certified Medical Emergency: Emergent Condition: Stable - Critical Care Note This patient required my direct & personal management of CC.: No Attestation - Physician/ ANG Attestation Patient care was provided by Advanced Practice Provider:: Yes Advanced Practice Provider:: Sameer Khan Advanced Practice Provider documentation review:: The Mid-level provider documentation, treatment plan and medical decision making was reviewed by the physician who agrees with all treatment and medical decision making by the P. The physician spent face to face time with patient:: No Advanced Practice Provider documentation review:: Supervising physician onsite and consulted in the evaluation and care of this patient. The physician did not have a face to face encounter with the patient.
[2019-09-30] MEDS ORDERED: DUONEB (A & A) INH ONE (00:54)
[2019-09-30 01:09] LABS: BASO# 0.02 X1000 (0.0-0.2); BASO% 0.2 % (0.0-0.8); EOS# 0.01 X1000 (0.0-0.7); EOS% 0.1 % (0.0-10.0); HEMATOCRIT 35.8 % (37.0-47.0); IMM GRAN# 0.03 X1000 (0.0-0.04); IMM GRAN% 0.3 % (0.0-0.5); LYMPH# 2.35 X1000 (1.2-3.4); LYMPH% 22.1 % (20.5-51.1); MCH 30.4 PG (27-31); MCHC 30.7 g/dL (33-37); MCV 98.9 FL (81-99); MONO# 1.07 X1000 (0.11-0.59); MONO% 10.1 % (1.7-9.3); MPV 9.6 FL (7.4-10.4); NEUT# 7.16 X1000 (1.4-6.5); NEUT% 67.2 % (42.2-75.2); PLT 222 X1000 (130-400); RBC 3.62 XMIL (4.2-5.4); RDW 16.1 % (11.5-14.5); WBC 10.64 X1000 (4.8-10.8)
[2019-09-30 01:13] LABS: INR 1.02; PROTIME 13.5 Seconds (11.0-16.0)
[2019-09-30 01:18] LABS: ALLEN TEST YES; BE -0.3 mmoll (-3.0-3.0); BLOOD TYPE ARTERIAL; HCO3-(ACT) 24.7 mmoll (20.0-26.0); METHB 1.2 % (0.0-1.5); O2(CT) 13.9 mL/dL (15.0-23.0); O2HB 94.6 % (95.0-99.0); PO2(98.6) 70 mmHg (60-100); SAMPLE BLOOD; SAO2 98.6 % (95.0-100.0); THB 10.4 g/dL (11.5-17.4); pH(98.6) 7.32 (7.35-7.45)
[2019-09-30 01:20] LABS: MODALITY CANNULA; PCO2(98.6) 51 mmHg (35-45)
[2019-09-30 01:22] LABS: ALB/GLOB RATIO 0.8; ALBUMIN 3.2 g/dL (3.5-5.0); CALCIUM 8.4 mg/dL (8.8-10.2); CREATININE 2.7 mg/dL (0.5-0.9); POTASSIUM 4.1 mmol/L (3.5-5.1); TOTAL BILIRUBIN 0.15 mg/dL (0.20-1.00); TOTAL PROTEIN 7.1 g/dL (6.3-8.3)
[2019-09-30 01:43] LABS: CK INDEX 0.6 (0.0-2.5); CK-MB 3.25 ng/mL (0.0-5.0)
--- NOTE | 2019-09-30 03:58 | EKG Report ---
Test Performed on : 09/30/2019 01:45:37 AM Test Reason : SOB Blood Pressure : / mmHG Vent. Rate : 103 BPM Atrial Rate : 103 BPM P-R Int : 178 ms QRS Dur : 068 ms QT Int : 324 ms P-R-T Axes : 040 017 048 degrees QTc Int : 424 ms Sinus tachycardia. Septal infarct , age undetermined Abnormal ECG When compared with ECG of 03-MAR-2019 14:52, TX interval has decreased Unconfirmed Result
[2019-09-30] MEDS: NS 1,000 ML IV SCH (06:00)
--- NOTE | 2019-09-30 06:26 | Diag Imaging Result Doc PS360 ---
CHEST-PORTABLE - 09/30/2019 INDICATION: SOB COMPARISON: 03/03/2019 FINDINGS: Stable severely low lung volumes. No infiltrates or edema. No pneumothorax or pleural effusion. Heart size is grossly normal. IMPRESSION: Severely low lung volumes but otherwise no acute disease. Electronically signed by Olman Hernandez 09/30/2019 6:23 AM
[2019-09-30 06:51] LABS: URINE SOURCE CATH
[2019-09-30 06:54] LABS: BILIRUBIN URINE NEGATIVE (NEGATIVE); BLOOD URINE MODERATE (NEGATIVE); COLOR YELLOW; GLUCOSE URINE NEGATIVE (NEGATIVE); KETONE URINE NEGATIVE (NEGATIVE); LEUKOCYTES URINE LARGE (NEGATIVE); NITRITE URINE NEGATIVE (NEGATIVE); PH URINE 5.5; PROTEIN URINE 50 mg/dL (NEGATIVE); SP GRAVITY URINE 1.012; TURBIDITY URINE HAZY (CLEAR); UROBILINOGEN URINE NORMAL (NORMAL)
[2019-09-30 06:56] LABS: UR EPITHELIAL CELLS <10 /HPF (<10); URINE BACTERIA 1+ /HPF; URINE RBC <10 /HPF (<10); URINE WBC TNTC /HPF (<10)
--- NOTE | 2019-09-30 06:58 | HISTORY AND PHYSICAL ---
CHIEF COMPLAINT: Shortness of breath and cough. HISTORY OF PRESENT ILLNESS: This is an 83-year-old female with history of COPD. She denies diabetes but she is diabetic. She has been having shortness of breath for the last 3 days, worsening over the last week, reportedly negative chest x-ray. She is usually on 2 L of oxygen but has been requiring increasing oxygen which she is requiring at this point up to 4 L. She does report cough, although not very productive. No tierra fevers or chills. The patient was evaluated in the ER. She is saturating 95 on 3 L, afebrile. No white count. Chest x-ray looks pretty stable. She is a little bit hypercapnic. She is also hyponatremic. She has some elevated creatinine which I do not think that is a big change from usual. She has had some acute hypoxic respiratory failure, actually she does have some acute kidney injury if looking at these numbers correctly, and she does look a little bit dehydrated. PAST MEDICAL HISTORY: 1. COPD. 2. Dementia although she is fairly responsive. 3. Reportedly type 2 diabetes, noninsulin dependent. 4. No heart failure. 5. Hypertension. 6. Degenerative arthritis. PAST SURGICAL HISTORY: She has had a hysterectomy. REVIEW OF SYSTEMS: Otherwise, noncontributory. MEDICATIONS: Have not been confirmed but reportedly Remeron, Neurontin, Cymbalta, Ativan, Requip, metformin, Zocor. FAMILY HISTORY: Reviewed, noncontributory. ALLERGIES: No known drug allergies. SOCIAL HISTORY: No current tobacco or alcohol use. 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 PHYSICAL EXAMINATION: VITAL SIGNS: Blood pressure is 124/50, heart rate of 94, respiratory rate of 20, temperature 99 degrees. GENERAL: A well-developed female, appears stated age. She has a fairly significant baseline tremor. Overall, she appears to be clinically dehydrated. Her eyes have dry mucosa, injected. NECK: Supple. HEENT: Pupils equal, round, reactive to light. Extraocular movements were intact. Ear, nose and throat exam, she had moist mucous membranes. CARDIOVASCULAR: Tachy, irregular. PULMONARY: Bilateral breath sounds. Diminished at the bases. No wheezes, no rales. GASTROINTESTINAL: Soft, nontender, nondistended. Bowel sounds are positive. Again, oropharyngeal, she had tacky mucosa, dry tongue. NEUROLOGIC: Nonfocal. MUSCULOSKELETAL: 4 to 5 in all 4 extremities. LABORATORY DATA: Her white count is 10, hemoglobin and hematocrit 11 and 35, platelets 222,000. pH 7.32, pCO2 51, PaO2 70. Sodium 129, BUN and creatinine of 34 and 2.7. CPK of 538, troponin high sensitivity 60. ProBNP 2280. ASSESSMENT: In any case, the patient is 83 and presents with hypoxia but also acute kidney injury, appears to be clinically dehydrated. PROBLEM LIST: 1. Hypoxic respiratory failure which is unclear, could be pneumonia. She does have a cough, but she does not have a white count. [place] to have chronic obstructive pulmonary disease with exacerbation. I did not appreciate any wheezing, but that is possibly because of other treatments. We will continue her nebulizer treatments and follow closely. 2. Acute kidney injury which may be related to poor p.o. intake or diuretic effect. I do not have all her medications in front of me. We will continue gentle hydration and monitor closely. Follow her sodium levels and follow her kidney function. 3. Type 2 diabetes we will follow blood sugars, check an A1c, monitor on sliding scale. We will continue to follow closely. 4. Her code status at correction is DNR. We will review that with the patient and follow. cc: MD Chris Pitts MD
[2019-09-30 07:12] LABS: UR CREAT RANDOM 73.6 mg/dL (11-20); UR PROT RANDOM 54.3 mg/dL
[2019-09-30] MEDS: DUONEB (A & A) INH SCH ×5 (07:30→22:48)
[2019-09-30] MEDS ORDERED: LEVAQUIN 500 MG/D5W 500 MG/100 ML IVPB IV SCH (08:45)
[2019-09-30] MEDS ORDERED: LEVAQUIN 500 MG/D5W 500 MG/100 ML IVPB IV ONE (09:07)
--- NOTE | 2019-09-30 09:51 | PROGRESS NOTE ---
DATE: 09/30/2019 SUBJECTIVE: Ms. Friend was admitted early this morning with a diagnosis of hypoxic respiratory failure, possible pneumonia, acute kidney injury, type 2 diabetes and possible UTI. Her blood gases revealed pCO2 of 51, PO2 of 70. Her proBNP was 2280. Her BUN is 34, creatinine is 2.7. Sodium is 129. Urine showed too numerous to count WBCs, nitrite however is negative. We have started Levaquin every other day, and maybe we will start her on some IV fluids also. -4 cc: Chris Rodriguez MD
[2019-09-30] MEDS ORDERED: POTASSIUM CHLORIDE 10 MEQ in 1/2 NS 1,000 ML IV SCH (10:00)
[2019-09-30] MEDS: HUMULIN R SUBQ SCH ×3 (10:19→16:00)
[2019-09-30] MEDS ORDERED: ZOFRAN IV PRN (10:19)
--- NOTE | 2019-09-30 10:26 | Diag Imaging Result Doc PS360 ---
US RENAL 2 (RETROPER) COMPLETE - 09/30/2019 INDICATION: kinsey/arf TECHNIQUE: COMPARISON: None FINDINGS: There is incidental note of mild splenomegaly. The spleen size is 13.1 x 13.1 x 3.9 cm. The liver is also mildly fatty. There is cortical thinning of both kidneys. No hydronephrosis. The right kidney measures 10.5 x 3.7 x 2.9 cm. Cortex measures 5 mm. The left kidney measures 9.1 x 4.4 x 3.7 cm. Cortex measures 6 mm. IMPRESSION: 1. Renal cortical thinning bilaterally compatible with chronic medical renal disease. 2. Mild fatty liver. 3. Mild splenomegaly. Electronically signed by Olman Hernandez 09/30/2019 10:24 AM
[2019-09-30] MEDS: HEPARIN SUBQ SCH (12:02)
[2019-09-30] MEDS ORDERED: NORCO-7.5 PO PRN (16:44)
[2019-10-01] MEDS: ATIVAN PO SCH ×3 (00:34→21:57)
[2019-10-01] MEDS: HEPARIN SUBQ SCH ×3 (00:35→21:57)
[2019-10-01] MEDS: HUMULIN R SUBQ SCH ×5 (00:39→21:57)
[2019-10-01] MEDS: NS 1,000 ML IV SCH (02:02)
[2019-10-01 06:00] LABS: BASO# 0.02 X1000 (0.0-0.2); BASO% 0.3 % (0.0-0.8); EOS# 0.01 X1000 (0.0-0.7); EOS% 0.1 % (0.0-10.0); HEMATOCRIT 36.5 % (37.0-47.0); HEMOGLOBIN 11.2 g/dL (12.0-16.0); IMM GRAN# 0.02 X1000 (0.0-0.04); IMM GRAN% 0.3 % (0.0-0.5); LYMPH# 1.24 X1000 (1.2-3.4); LYMPH% 18.5 % (20.5-51.1); MCH 30.2 PG (27-31); MCHC 30.7 g/dL (33-37); MCV 98.4 FL (81-99); MONO# 0.66 X1000 (0.11-0.59); MONO% 9.9 % (1.7-9.3); MPV 9.6 FL (7.4-10.4); NEUT# 4.74 X1000 (1.4-6.5); NEUT% 70.9 % (42.2-75.2); PLT 202 X1000 (130-400); RBC 3.71 XMIL (4.2-5.4); RDW 15.6 % (11.5-14.5); WBC 6.69 X1000 (4.8-10.8)
[2019-10-01 06:04] LABS: HEMOGLOBIN A1C 5.6 % (4.8-6.0)
[2019-10-01 06:15] LABS: CALCIUM 8.5 mg/dL (8.8-10.2); CREATININE 1.2 mg/dL (0.5-0.9); POTASSIUM 3.7 mmol/L (3.5-5.1)
[2019-10-01] MEDS: TYLENOL PO PRN (06:34)
[2019-10-01] MEDS: DUONEB (A & A) INH SCH ×5 (07:29→23:56)
[2019-10-01] MEDS ORDERED: VANCOMYCIN IV PER PHARMACY MISC SCH (08:45)
[2019-10-01] MEDS ORDERED: VANCOMYCIN 1,500 MG in NS 250 ML IV ONE (10:15)
[2019-10-01] MEDS ORDERED: CALMOSEPTINE OINTMENT TOP PRN (11:43)
[2019-10-01] MEDS: SOLU-MEDROL IV SCH (13:18)
[2019-10-02] MEDS: SOLU-MEDROL IV SCH (05:14)
[2019-10-02] MEDS: DUONEB (A & A) INH SCH ×5 (07:44→23:40)
[2019-10-02] MEDS ORDERED: LEVAQUIN 250 MG/D5W 250 MG/50 ML IVPB IV SCH (09:00)
[2019-10-02] MEDS: ATIVAN PO SCH ×2 (09:53→20:11)
[2019-10-02] MEDS: HEPARIN SUBQ SCH ×2 (09:53→21:36)
[2019-10-02] MEDS: HUMULIN R SUBQ SCH ×3 (13:59→21:31)
--- NOTE | 2019-10-02 19:03 | PROGRESS NOTE ---
DATE: 10/02/2019 SUBJECTIVE: An 83-year-old white female was admitted on 09/30/2019, basically came in with shortness of breath and cough. The patient has azotemia, elevated CK. Since then the patient is doing very well. She also has UTI with Escherichia coli, ESBL positive, in isolation, Staphylococcus aureus 1 out of 2, which is methicillin-resistant staphylococcus. The patient is eating well. PAST MEDICAL HISTORY: Reviewed. PAST SURGICAL HISTORY: Reviewed. MEDICATIONS: Reviewed. ALLERGIES: Not known. OBJECTIVE: Temperature is 97.5 degrees, pulse 90, blood pressure is 180/85. Elderly female, not in respiratory distress, eating well without assistance. Chest is clear. Heart sounds are regular. Belly is soft, protuberant. The patient is in diapers. No peripheral edema. No obvious neurological deficits. LABORATORY DATA: White cell count 6.6, hematocrit 36.5, platelets 202,000. SMA 7: Creatinine 1.2, sodium 135, glucose 175. ASSESSMENT AND PLAN: 1. Altered mental status due to metabolic encephalopathy, improving. 2. Urinary tract infection with extended-spectrum beta-lactamase Escherichia coli and methicillin- resistant Staphylococcus aureus bacteremia. Currently on intravenous vancomycin which is sensitive. 3. Deep venous thrombosis prophylaxis. Subcutaneous heparin. 4. Azotemia, improving. 5. Cut down the steroids. Repeat the labs in the morning. The patient is anxious to go back to [facility]. We will continue present treatment. 6. Living Will: Do Not Resuscitate/Allow Natural level 1. Level of documentation 35 minutes. cc: MD Chris Hernandez MD
[2019-10-02] MEDS: TYLENOL PO PRN (20:11)
[2019-10-03] MEDS: HUMULIN R SUBQ SCH ×5 (06:16→23:31)
[2019-10-03] MEDS: DUONEB (A & A) INH SCH ×5 (07:55→23:20)
[2019-10-03 08:23] LABS: BASO# 0.07 X1000 (0.0-0.2); EOS# 0.01 X1000 (0.0-0.7); EOS% 0.1 % (0.0-10.0); HEMATOCRIT 37.4 % (37.0-47.0); HEMOGLOBIN 11.6 g/dL (12.0-16.0); IMM GRAN# 0.11 X1000 (0.0-0.04); IMM GRAN% 1.6 % (0.0-0.5); LYMPH% 32.6 % (20.5-51.1); MCH 30.1 PG (27-31); MCV 96.9 FL (81-99); MONO# 1.04 X1000 (0.11-0.59); MONO% 14.7 % (1.7-9.3); NEUT# 3.53 X1000 (1.4-6.5); PLT 232 X1000 (130-400); RBC 3.86 XMIL (4.2-5.4); RDW 15.1 % (11.5-14.5); WBC 7.06 X1000 (4.8-10.8)
[2019-10-03] MEDS: ATIVAN PO SCH ×2 (08:54→23:30)
[2019-10-03] MEDS: SOLU-MEDROL IV SCH (08:54)
[2019-10-03 08:59] LABS: CALCIUM 9.3 mg/dL (8.8-10.2); CREATININE 0.9 mg/dL (0.5-0.9); POTASSIUM 2.9 mmol/L (3.5-5.1)
[2019-10-03] MEDS: HEPARIN SUBQ SCH ×2 (10:00→23:31)
[2019-10-03] MEDS ORDERED: VANCOMYCIN 1,300 MG in NS 250 ML IV SCH (10:15)
[2019-10-03] MEDS ORDERED: BLISTEX MEDICATED BERRY LIP BALM TOP PRN (15:14)
--- NOTE | 2019-10-03 15:37 | PROGRESS NOTE ---
DATE: 10/03/2019 SUBJECTIVE: The patient is sleepy today. REVIEW OF SYSTEMS: None reported. OBJECTIVE: Vital Signs: Temperature is 98 degrees, pulse is 103, blood pressure is 180/70, 3 L nasal cannula. HEENT: Within normal limits. Neck: Supple. Chest: Bilateral air entry. Heart: Sounds are regular. Abdomen: Belly is soft, obese, nontender. Good bowel sounds. Neurologic: No neurological deficits. INVESTIGATIONS: CBC: White cell count 7, hematocrit 37.4, platelets 232,000. Sodium 139, potassium 2.9, chloride 100, BUN 17, creatinine 0.9, glucose 125, calcium 9.3. Blood cultures are negative. Urine cultures: E coli. Blood cultures: Staph aureus. ASSESSMENT AND PLAN: 1. Delirium is improving. 2. Urinary tract infection with ESBL, Escherichia coli, and methicillin-resistant Staphylococcus aureus, currently on intravenous vancomycin, doing very well. 3. Hypokalemia. Replace the potassium. 4. Living will. DO NOT RESUSCITATE. Planning to discharge tomorrow, [facility]. LEVEL OF DOCUMENTATION: 25 minutes. cc: MD Chris Hernandez MD
[2019-10-03] MEDS: POTASSIUM CHLORIDE 60 MEQ in NS 500 ML IV SCH (17:35)
[2019-10-03] MEDS ORDERED: ROBITUSSIN-DM PO PRN (17:41)
[2019-10-04] MEDS: POTASSIUM CHLORIDE 60 MEQ in NS 500 ML IV SCH (01:40)
--- NOTE | 2019-10-04 04:41 | PROGRESS NOTE ---
DATE: 10/01/2019 The patient has hypoxemic respiratory failure. She has gram-positive cocci isolated from 1 blood culture bottle. We are going to put her on IV vancomycin. Overall condition otherwise unchanged. She has some expiratory wheezing. Has COPD. White count has come down from 10.64 to 6.69. Arterial blood gases revealed a pCO2 of 51, PO2 of 70. She has some respiratory failure. We will continue with the current management on her. -2 cc: Chris Rodriguez MD
[2019-10-04] MEDS: HUMULIN R SUBQ SCH ×2 (06:05→11:09)
[2019-10-04] MEDS: DUONEB (A & A) INH SCH ×3 (08:03→15:43)
[2019-10-04] MEDS ORDERED: SEPTRA DS PO SCH (09:00)
--- NOTE | 2019-10-04 09:13 | PROGRESS NOTE ---
DATE: 10/04/2019 SUBJECTIVE: Ms. Friend Staph aureus growing out of 1 more tube. She has E coli UTI and has severe COPD. She was admitted for acute mental status change. The patient is alert and oriented at the present time. She has been insisting to go back to [facility] for the last several days. She is really having a fit to go back to the group home. She is on IV vancomycin. I am going to discontinue that and put her on clindamycin and Septra for about 10 days and discharge her today. Her potassium was 2.9, and we are going to give her some supplemental potassium. cc: Chris Rodriguez MD
[2019-10-04] MEDS: ATIVAN PO SCH (09:41)
[2019-10-04] MEDS: KLOR-CON PO SCH ×2 (09:41→14:06)
[2019-10-04] MEDS: SOLU-MEDROL IV SCH (09:41)
--- NOTE | 2019-10-04 10:07 | DISCHARGE SUMMARY ---
ADMISSION DATE: 09/30/2019 DISCHARGE DATE: 10/04/2019 REASON FOR ADMISSION: Ms. Friend was admitted with acute mental status change, hypoxemic respiratory failure, urinary tract infection. LABORATORY DATA: In the hospital, CBC showed white count was slightly elevated, RBC count was 3.86, hemoglobin 11.6. INR was 1.02. ABGs revealed pCO2 of 51. Potassium has come down to 2.9 from initial potassium of 3.7. Urinalysis revealed too numerous WBCs, large leukocytes, nitrates were negative. Urine culture grew Escherichia coli, and one bottle of blood culture grew Staph aureus. She was given IV vancomycin as well as IV Levaquin, which we continued. She now is being treated for Staph aureus infection with Septra DS and clindamycin as she is insisting on going back to the custodial today. She was initially treated with vancomycin. She has almost a fit to go to the custodial today. Since the Staph aureus grew only from one bottle, we cannot put too much emphasis on the infection. We will be discharging her. FINAL DIAGNOSES: 1. Escherichia coli urinary tract infection. 2. Mental status change. 3. Hypoxemic respiratory failure. 4. Chronic obstructive pulmonary disease. 5. Possible Staphylococcus aureus septicemia. She will be getting Septra DS for 2 weeks, and clindamycin for 7 days at the custodial. cc: Chris Rodriguez MD
[2019-10-04] MEDS: HEPARIN SUBQ SCH (11:07)
[2019-10-04] MEDS ORDERED: CLEOCIN PO SCH (14:00)
[2019-10-04 16:20] VITALS: BP 112/65
== END 2019-10-04 16:30 | DRG 871 ==
LOC: ED 00:25 → EDIPHOLD 05:35 → SUATTDRO 05:35 → EDIPHOLD 18:36 → 3N 10-01 11:25
PROVIDERS: ADMIT Internal Medicine; ATTEND Internal Medicine